=== PATIENT | female | born 1965 | race Caucasian/White ===

== ENCOUNTER → 2016-12-23 | Outpatient (CLI) | payer BC ==
[~2016-12-23] MED LIST: LO/OVRAL-28 301 TA1 PO
== END ==
LOC: MC.RAD 07:00
DX: Z12.31 Encounter for screening mammogram for malignant neoplasm of breast (principal); N64.89 Other specified disorders of breast

== ENCOUNTER → 2016-12-24 | Outpatient (CLI) | payer BC | LOC: MC.RAD 14:30 | DX: Z12.39 Encounter for other screening for malignant neoplasm of breast (principal) ==

== ENCOUNTER → 2017-02-20 | Outpatient (CLI) | payer BC | LOC: COL.RAD 07:06 | DX: N83.312 Acquired atrophy of left ovary (principal); N83.311 Acquired atrophy of right ovary ==

== ENCOUNTER → 2018-01-25 | Outpatient (CLI) | payer BC | LOC: MC.RAD 06:55 | DX: Z12.31 Encounter for screening mammogram for malignant neoplasm of breast (principal) ==

== ENCOUNTER → 2019-06-14 | Outpatient (CLI) | payer BC | LOC: MC.RAD 16:13 | DX: Z12.31 Encounter for screening mammogram for malignant neoplasm of breast (principal) ==

== ENCOUNTER → 2020-08-16 | Outpatient (CLI) | payer BC | LOC: MC.RAD 07-20 07:00 | DX: Z12.31 Encounter for screening mammogram for malignant neoplasm of breast (principal) ==

== ENCOUNTER → 2023-08-25 | Outpatient (CLI) | payer BC | LOC: MC.RAD 11:12 | DX: Z12.31 Encounter for screening mammogram for malignant neoplasm of breast (principal) ==